=== PATIENT | male | born 1940 | race Caucasian/White ===

== ENCOUNTER → 2024-09-19 10:54 | Outpatient (BNVA) | payer MEDICARE, OTHER, SELFPAY | PROVIDERS: Referring Provider Family Medicine; Visit Provider Specialist | DX: G31.84 Mild cognitive impairment of uncertain or unknown etiology (principal); R56.9 Unspecified convulsions; G45.9 Transient cerebral ischemic attack, unspecified; G62.9 Polyneuropathy, unspecified; I99.8 Other disorder of circulatory system; R03.0 Elevated blood-pressure reading, without diagnosis of hypertension | CPT/HCPCS: 36415; 82607; 82746; 83520; 84439; 84443; 99204; 99205 ==

== ENCOUNTER 2024-10-02 12:26 | Outpatient (CLI) | payer MEDICARE, OTHER, SELFPAY ==
--- NOTE | 2024-10-02 13:00 | MR_ITS ---
WS: [id number] MRI HEAD WITHOUT CONTRAST TECHNIQUE: Sagittal T1, T2 axial, T2 axial FLAIR, axial and coronal T1 images, axial susceptibility w eighted imaging, axial diffusion weighted images, and coronal T2 images were obtained. CLINICAL INFORMATION: G31.84 - Mild cognitive impairment of uncertain or unknow... COMPARISON: None. FINDINGS: No evidence of restricted diffusion to suggest acute ischemia. Ventricular system and basal cisterns are patent. Normal posterior fossa. Normal vascular flow voids at the skull base. No extra-axial flui d collections. No mass or mass effect. RIGHT maxillary sinusitis. Fluid in the ethmoid air cells. [place] air cells are well aerated. 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 LE FT middle cranial fossa arachnoid cyst measuring 3.9 x 1.6 cm Normal optic chiasm and pituitary infundibulum. 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 MR/MR head wo con* [id number] IMPRESSION: 1. No evidence of restricted diffusion to suggest acute ischemia. 2. Mild small vessel changes. Moderate parenchymal volume loss. 3. 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 4. Paranasal sinusitis in the RIGHT ethmoid air cells and RIGHT maxillary sinu s. Sphenoid sinusitis. 5. Incidental arachnoid cyst LEFT middle cranial fossa. 6. 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
--- NOTE | 2024-10-02 13:00 | MR_ITS ---
WS: [id number] MRA HEAD TECHNIQUE: Axial 3-D TOF images obtained with axial images and axial, sagittal, and coronal 2-D refor matted images. CLINICAL INFORMATION: G31.84 - Mild cognitive impairment of uncertain or unknow... COMPARISON: None. FINDINGS: Moderate intracranial atheromatous disease. Tiny basilar artery is patent. Anterior dominant circulat ion. Persistent bilateral blasting entryman. Mild to moderate segmental atheromatous disease involving the R IGHT greater than LEFT HALL PORTER territories. Both ICAs are patent at the skull base. Normal vascularity to the AVIS territory. Mild to moderate constance nosis RIGHT M1 segment. Distal MCA vessels remain patent. No proximal flow-limiting stenosis. MR/MR angio head wo con [id number] IMPRESSION: 1. 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 No proximal flow-limiting stenosis. 2. Diminutive basilar artery with anterior dominant circulation. Persistent bi lateral blasting entryman. 3. Moderate segmental narrowing in the RIGHT M1 segment 4. Mild to moderate segmental narrowing RIGHT greater than LEFT HALL PORTER territorie s. Distal vessels remain patent.
--- NOTE | 2024-10-02 13:45 | MR_ITS ---
WS: [id number] MRA CAROTID WITHOUT AND WITH GADOLINIUM ENHANCEMENT TECHNIQUE: Axial 2-D TOF and gadolinium bolus images obtained with axial images and axial, sagittal, and coronal 2-D reformatted images. CLINICAL INFORMATION: G31.84 - Mild cognitive impairment of uncertain or unknow... COMPARISON: None. FINDINGS: RIGHT: RIGHT common carotid artery is patent. No significant RIGHT ICA stenosis. ICA is patent to the skull base. LEFT: LEFT common carotid artery is patent. No significant LEFT ICA stenosis. LEFT ICA is patent to t he skull base. Codominant and patent vertebral arteries bilaterally. Vertebral arteries are patent to the basilar ju nction. Proximal subclavian arteries are patent. MR/MR angio neck w con* [id number] IMPRESSION: 1. No significant cervical ICA stenosis. 2. Codominant and patent vertebral arteries bilaterally.
[2024-10-02] MEDS: gadobenate dimeglumine 20 mL vial 17 ML IV (13:49)
== END 2024-10-02 12:27 | disposition home or self-care (01) ==
PROVIDERS: Visit Provider Specialist
DX: I63.81 Other cerebral infarction due to occlusion or stenosis of small artery (principal); I66.01 Occlusion and stenosis of right middle cerebral artery; I66.21 Occlusion and stenosis of right posterior cerebral artery; G31.89 Other specified degenerative diseases of nervous system; J01.00 Acute maxillary sinusitis, unspecified; J32.3 Chronic sphenoidal sinusitis; G93.81 Temporal sclerosis; R56.9 Unspecified convulsions; G62.9 Polyneuropathy, unspecified
CPT/HCPCS: 70544; 70548; 70551

== ENCOUNTER → 2024-11-13 15:49 | Outpatient (BNVA) | payer MEDICARE, OTHER, SELFPAY | PROVIDERS: Referring Provider Specialist; Visit Provider Specialist | DX: G45.9 Transient cerebral ischemic attack, unspecified (principal); G31.84 Mild cognitive impairment of uncertain or unknown etiology; R55 Syncope and collapse; G62.9 Polyneuropathy, unspecified | CPT/HCPCS: 95816; 95910 ==

== ENCOUNTER → 2025-01-11 11:55 | Outpatient (BNVA) | payer MEDICARE, OTHER, SELFPAY | PROVIDERS: PCP Family Medicine; Visit Provider Specialist | DX: R56.9 Unspecified convulsions (principal); G45.9 Transient cerebral ischemic attack, unspecified; G62.9 Polyneuropathy, unspecified; I99.8 Other disorder of circulatory system; G93.0 Cerebral cysts; I95.1 Orthostatic hypotension; R26.9 Unspecified abnormalities of gait and mobility; I66.9 Occlusion and stenosis of unspecified cerebral artery | CPT/HCPCS: 99215 ==